=== PATIENT | male | born 1960 | race Caucasian/White ===

== ENCOUNTER → 2017-03-04 | Day surgery (SDC) | payer OTHER ==
[~2017-03-04] VITALS: Ht 180.3 cm; Wt 115.8 kg
[~2017-03-04] MED LIST: *diphenhydrAMINE HCL 50 MG/ML VIAL PERIprocedural Use ONLY ONE; ACETAMINOPHEN 1000 MG/100 ML VIAL IV SCH; ACETAMINOPHEN/HYDROcodone 325 MG/5 MG TAB PO PRN; ANDR1GEL TOPICAL; ASPI81TA11 PO; BUPIVACAINE HCL PF 0.25% 30 ML VIAL ONE; CHLORHEXIDINE GLUCONATE 2 % 1 PACK (2 CLOTHS) TOPICAL PRN; DO NOT ADM ANY ANTICOAGULANT DRUGS PRN; FAMOTIDINE 20 MG/2 ML VIAL ONE; FINA1TAB16 PO; HYDR-3288 PO; INSULIN HUMAN REGULAR 1,000 UNITS/10 ML VIAL SQ PRN; KETOROLAC TROMETHAMINE 60 MG/2 ML (IM) VIAL IM ONE; LACTATED RINGER'S 1000 ML INJ 1,000 ML IV ONE; LACTATED RINGER'S 1000 ML IV PRN; LIDOCAINE 1%/EPINEPHrine 1:100,000 SOLN 20 ML VIAL ONE; LIDOCAINE 1%/EPINEPHrine 1:100,000 SOLN 30 ML VIAL ONE; METOPROLOL TARTRATE 25 MG TAB PO PRN; MIDAZOLAM HCL 2 MG/2 ML VIAL ONE; MORPHINE SULFATE 4 MG/ML INJ IV PRN; MULTTAB67 PO; ONDANSETRON HCL 4 MG/2 ML VIAL IV PUSH ONE; ONDANSETRON HCL 4 MG/2 ML VIAL IV PUSH PRN; POVIDONE IODINE 5% (ANTISEPSIS KIT) 4 APPLICATIONS EACH NARE PRN; PREVAGEN PO; PROPOFOL 200 MG/20 ML AMP IV ONE; SODIUM CHLORID 0.9% 500 ML IV PRN; SUGAMMADEX SODIUM 200 MG/2 ML VIAL IV PUSH ONE; TAMS0.4C4 PO; VANCOMYCIN 1,000 MG/NS 250ML (for <70 kg) IV SCH; ceFAZolin 1,000 MG/NS 100 ML IV SCH; ePHEDrine/NS 25 MG/5 ML SYR IV ONE; fentaNYL CITRATE 250 MCG/5 ML AMP ONE
[2017-03-04 06:38] VITALS: BP 142/90; PULSE 72; RESP 18; TEMP 98.1; O2SAT 98
--- NOTE | 2017-03-04 07:29 | EKG ---
Date Performed: 03/04/2017 Time Performed: 06:48:24 PTAGE: 56 years EKG: Sinus rhythm POSSIBLE RIGHT VENTRICULAR CONDUCTION DELAY BORDERLINE ECG Compared to the PREVIOUS TRACING Prior electrocardiogram most likely has limb lead reversal. PREVIOUS TR ACIN05/27/2014 14.56 DOCTOR: Alcides Zamora Interpretating Date/Time 03/04/2017 07:27:55
--- NOTE | 2017-03-04 11:48 | HHI.PR ---
cc: Justin Dc MD Immediate Post Op Note Procedure Date: Mar 04, 2017 Pre Op Diagnosis: Umbilical hernia, reducible Left inguinal hernia, reducible Post Op Diagnosis: Same Surgeon: Justin Dc Fish Pitcher(s): MAG Travis Procedure: Laparoscopic Left inguinal hernia repair with mesh Umbilical hernia repair with mesh Anesthesia: General Drains: None IVF (1400 ml) Patient to: PACU Patient Condition: Good Date/Time of Procedure: SEE SURGICAL CARE RECORD Justin Dc MD Mar 04, 2017 11:48
[2017-03-04 14:30] VITALS: BP 116/72; PULSE 72; RESP 16; TEMP 97.8; O2SAT 96
--- NOTE | 2017-03-05 00:11 | MP ---
cc: NASREEN DC M.D. DATE OF SURGERY: 03/04/2017 PROCEDURE: 1. Laparoscopic left inguinal hernia repair with mesh. 2. Umbilical hernia repair with mesh. PREOPERATIVE DIAGNOSIS: 1. Symptomatic reducible left inguinal hernia. 2. Symptomatic reducible umbilical hernia. POSTOPERATIVE DIAGNOSIS: 1. Symptomatic reducible left inguinal hernia. 2. Symptomatic reducible umbilical hernia. ANESTHESIA: General endotracheal anesthesia SURGEON: Denny Dc MD. ESTIMATED BLOOD LOSS: Less than 10 mL FLUIDS: 1400 mL Crystalloid COMPLICATIONS: None. DRAINS: None. SPECIMEN: None. FINDINGS: Direct left inguinal hernia. PROCEDURE IN DETAIL: The patient was seen in the holding area and the left groin marked and confirmed by the patient. He was taken to the operating room and placed on the operating table in the supine position. After an adequate level of general endotracheal anesthesia was achieved the left arm was tucked and the abdomen shaved, prepped and draped. Time-out was taken confirming the correct patient, site and procedures to be performed. A transverse incision was made under the umbilicus and carried down to the hernia sac. This was opened and the hernia was reduced into the abdominal cavity. The hernia defect was partially closed temporarily with a 0 Prolene suture to allow for the balloon trocar to be inserted with an air tight seal. This was inserted and the balloon inflated. The abdomen was insufflated. The patient was placed in Trendelenburg position. A 10 millimeter 30 degree laparoscope was inserted. A 5 millimeter trocar was placed in the right lower quadrant and a 12 millimeter trocar in the left lower quadrant. Both entered the abdominal cavity under direct vision uneventfully. The peritoneum was then incised and peeled downward. Raj's ligament was identified and cleaned of loose fatty areolar tissue. Fatty tissue was then cleaned off of the transversalis fascia on the anterior abdominal wall. The patient was noted to have a small direct hernia defect just superior to Raj's ligament. A small window was created behind the spermatic cord structures and a 6 x 6 inch piece of UltraPro mesh was trimmed down to size to fit the defect and allow for sufficient overlap. The mesh was slit longitudinally, placed into the pelvis, and the inferior leaf then brought underneath the spermatic cord structures. The mesh was transfixed to Raj's ligament with 4.0 mm huong. 4.8 mm huong were used to fix the mesh to the transversalis fascia. The mesh was then reapproximated laterally with two 4.8 mm huong to reapproximate the edges and create a new internal ring. With the defect completely enclosed, insufflation was decreased and the peritoneum closed with 4.8 mm huong. At this point insufflation was discontinued and the left and right lower quadrant ports were removed. No bleeding was noted from the port sites during desufflation. The laparoscope and umbilical port were then removed. The suture was cut and the fascial edges then freshened up. As the patient had a defect larger than 2 cm, and [address] mesh was picked and placed into the subfascial plane, after cleaning all of the fatty tissue off of the fascia. The mesh was fixed at multiple points with 0 Prolene suture and the fascia then closed over the mesh with #1 Prolene suture in a transverse interrupted fashion after trimming the tabs. Local anesthetic was injected into the fascial tissue as well as into the groin on the left. The skin was attached back to the fat, the umbilical skin was attached back to the fascia with 3-0 Vicryl suture. The wound was closed with interrupted 3-0 Vicryl suture and the skin closed with 5-0 PDS in a running subcuticular fashion. The fascia was closed in the left lower quadrant 12-mm trocar site with 0 Vicryl suture in a [id number] fashion. 4-0 Vicryl as was used then to close the trocar site in the left lower quadrant and the right lower quadrant in an interrupted buried fashion. These sites were dressed with Steri-Strips. The umbilicus was dressed with Steri-Strips on the incision, 4x4 and Tegaderm. The patient had an abdominal binder applied; he was extubated and taken back to the Recovery Room in stable condition. Sponge, needle and instrument counts were reported be correct. The patient tolerated the procedure well. MD AMAURI Wallace/OSMANI /1:17 PM /11:55 PM
== END | disposition home or self-care (01) ==
LOC: HSDC 05:48
PROVIDERS: ATTEND Surgery Trauma Surgery
DX: K40.90 Unilateral inguinal hernia, without obstruction or gangrene, not specified as recurrent (principal); K42.9 Umbilical hernia without obstruction or gangrene; Z01.810 Encounter for preprocedural cardiovascular examination; Z87.891 Personal history of nicotine dependence
CPT/HCPCS: 00840; 49585; 49650; 93005; C1781; J0131; J0690; J1200; J1885; J2250; J2405; J3010; J3370; J7050; J7120